=== PATIENT | female | born 1975 | race Caucasian/White ===

== ENCOUNTER → 2017-07-23 07:25 | Outpatient (CLI) | payer OTHER, SELFPAY ==
--- NOTE | 2017-07-23 07:29 | NM_ITS ---
History and Indications: Hypertension, family history, chest pain, fatigue and abnormal EKG Procedure: Patient received a 0.4 mg of Lexiscan, resting heart rate was 82 beats prominent, resting blood pressure 120/60, with Lexiscan maximum heart rate achieved was 103beats per min which is less than 85% of the maximum predicted heart rate and a blood pressure was 116/56. With Lexiscan patient denied any complained of chest pain. Electrocardiogram: Resting electrocardiogram show sinus rhythm, with Lexiscan there is less than 1.[address] segment depression noted from the baseline EKG. The EKG portion of the Lexiscan Myoview is nondiagnostic. Cardiac stress and resting SPECT images: Cardiac stress and rest SPECT images were obtained using technetium 99 Myoview 31.8 mCi at stress and 10.1 mCi at rest. Gated SPECT further analysis of segmental wall motion and calculation of the ejection fraction also done. Cardiac stress and the suspect show mild fixed defect in the anterior wall with the perfusion of the apex being normal and normal contractility in the gated SPECT is likely secondary to soft tissue attenuation, no reversible ischemia seen. Computer derived ejection fraction is 65% with no obvious regional wall motion abnormality, right ventricle is normal size and contractility. Conclusion: 1. The EKG portion of the Lexiscan Myoview is nondiagnostic. 2. No obvious scintigraphic evidence of reversible ischemia seen, a fixed defect seen anteriorly is likely secondary to soft tissue attenuation from the breast no reversible ischemia seen. Computer derived ejection fraction is 65% with no obvious regional wall motion abnormality, right ventricle is normal size and contractility.
== END ==
PROVIDERS: PCP Nurse Practitioner Family; Visit Provider Internal Medicine
DX: R94.31 Abnormal electrocardiogram [ECG] [EKG] (principal); R07.9 Chest pain, unspecified; R06.09 Other forms of dyspnea; R60.0 Localized edema; Z82.49 Family history of ischemic heart disease and other diseases of the circulatory system
CPT/HCPCS: 78452; 93017; A9502; J2785

== ENCOUNTER → 2017-07-30 08:28 | Outpatient (CLI) | payer OTHER, SELFPAY ==
--- NOTE | 2017-07-30 | CA_ITS ---
PROCEDURE: 2-D M-mode and color Doppler study INDICATIONS FOR THE TEST: Chest pain+ COPD Heart Murmur Tobacco SmokingEX Palpitations Fatigue Syncope Edema+ Hypertension Diabetes Mellitus Rheumatic Fever SOB QUIROGA+Obesity Hyperlipidemia Family History HD+ Additional History PATIENT INFORMATION HEIGHT: 69 WEIGHT: 344 GENDER: Female B/P: 172/87 2-D/M-MODE INTERPRETATION: 2-D MEASUREMENTS OBSERVED VALUES IN CMS Right Ventricular Dimension (RVDd) 2.0 Interventricular Septum (Thickness)(IVsd) 1.7 Left Ventricular Internal Dimensions(LVIDd) 2.0 Left Ventricular Posterior Wall (Thickness)(LVPWd) 1.7 Aortic Root 3.6 Aortic Cusp Separation 2.4 Left Atrial Dimensions (LAD) 3.2 2D 1. Technically difficult study because of the patient's factor and poor acoustic windows 2. Left atrium is normal size, left ventricle is normal size, there is preserved left ventricular systolic function, visually estimated ejection fraction 55% with no obvious regional wall motion abnormality. Endocardial surfaces are very poorly visualized. 3. The right atrium and right ventricle are normal size and contractility. 4. The aortic, mitral and tricuspid valvular grossly normal. 5. The pulmonic valve is poorly visualized. 6. No significant pericardial effusion noted. DOPPLER INTERROGATION: Doppler interrogation of the aortic, mitral and tricuspid valvular presence of mild mitral and tricuspid regurgitation, tricuspid regurgitant jet velocity is insufficient for calculation of the right ventricular systolic pressure, diastolic parameters are inconclusive. CONCLUSION: 1. Technically difficult study because of the patient's factor and poor acrostic Windows. 2. Normal left ventricular size, preserved left ventricular systolic function, visually estimated ejection fraction 55% with no obvious regional wall motion abnormality, endocardial surfaces are poorly visualized. 3. Mild mitral and tricuspid regurgitation 4. No significant pericardial effusion noted.
[2017-07-30 09:13] LABS: Hemoglobin A1C 6.5 % (0.0-7.0)
[2017-07-30 09:26] LABS: Anion Gap 10.3 mEq/L (5-15); Blood Urea Nitrogen 10 mg/dL (7-18); Carbon Dioxide 30 mmol/L (21.0-32.0); Chloride 106 mmol/L (98-107); Creatinine,Serum 0.68 mg/dL (0.55-1.02); Estimated Glomerular Filt Rate 94 ml/min (>60); GFR (African American) 114 ML/MIN (>60); Glucose 130 mg/dL (74-106); Potassium 4.3 mmoL/L (3.5-5.1); Sodium 142 mmol/L (136-145)
== END ==
PROVIDERS: Physician Assistant; PCP Nurse Practitioner Family; Visit Provider Internal Medicine
DX: R94.31 Abnormal electrocardiogram [ECG] [EKG] (principal); R06.09 Other forms of dyspnea; R07.89 Other chest pain; R60.0 Localized edema; Z82.49 Family history of ischemic heart disease and other diseases of the circulatory system
CPT/HCPCS: 36415; 80048; 83036; 93306

== ENCOUNTER → 2017-09-03 15:43 | Outpatient (CLI) | payer OTHER, SELFPAY | PROVIDERS: PCP Nurse Practitioner Family; Visit Provider Nurse Practitioner Family | DX: G47.30 Sleep apnea, unspecified (principal) | CPT/HCPCS: 95806 ==

== ENCOUNTER → 2019-06-01 15:50 | Outpatient (CLI) | payer OTHER, SELFPAY | PROVIDERS: Visit Provider Nurse Practitioner Family | DX: M54.9 Dorsalgia, unspecified (principal) | CPT/HCPCS: 87086 ==

== ENCOUNTER → 2019-09-12 07:20 | Outpatient (CLI) | payer OTHER, SELFPAY ==
[2019-09-12 08:40] LABS: Basophils # 0.1 K/mm3 (0-0.2); Basophils % 0.9 % (0.1-2.0); Eosinophils # 0.2 K/mm3 (0.0-0.4); Hematocrit 41.3 % (37.0-47.0); Hemoglobin 13.5 g/dL (12.2-16.2); Lymphocytes # 2.8 K/mm3 (0.7-4.5); Lymphocytes % 37.8 % (10-50); Mean Corpuscular HGB Conc 32.6 g/dL (31.8-35.4); Mean Corpuscular Volume 91.8 fl (81-99); Mean Platelet Volume 8.4 fl (7.4-10.4); Monocytes # 0.4 K/mm3 (0.1-1.0); Monocytes % 5.3 % (1.7-9.3); Neutrophils # 4.1 K/mm3 (1.8-7.8); Neutrophils % 54.1 % (37.0-80.0); Platelet Count 237 K/mm3 (142-424); Red Cell Distribution Width 13.1 % (11.5-17.5); White Blood Count 7.5 K/mm3 (4.8-10.8)
[2019-09-12 09:48] LABS: Chloride 105 mmol/L (98-107); Sodium 140 mmol/L (136-145)
[2019-09-12 09:49] LABS: Potassium 4.6 mmoL/L (3.5-5.1)
[2019-09-12 09:51] LABS: Alanine Aminotransferase 26 U/L (12-78); Alkaline Phosphatase 58 U/L (38-126); Anion Gap 13.6 mEq/L (5-15); Aspartate Amino Transferase 24 U/L (14-36); Bilirubin,Total 0.4 mg/dl (0.2-1.3); Blood Urea Nitrogen 12 mg/dl (7-17); Carbon Dioxide 26 mmol/L (22.0-30.0); Estimated Glomerular Filt Rate 108 ml/min (>60); GFR (African American) 131 ML/MIN (>60)
[2019-09-12 09:52] LABS: Albumin Level 3.9 g/dl (3.5-5.0); Albumin/Globulin Ratio 1.3 (1.1-1.8); Calcium 9.8 mg/dl (8.4-10.2); Globulin 3.1 g/dL (1.3-3.2); Glucose 125 mg/dl (74-100)
== END ==
PROVIDERS: Visit Provider Internal Medicine Rheumatology
DX: I10 Essential (primary) hypertension (principal)
CPT/HCPCS: 36415; 80053; 85025

== ENCOUNTER → 2020-07-05 07:21 | Outpatient (CLI) | payer OTHER, SELFPAY ==
[2020-07-05 07:45] LABS: Basophils # 0.1 K/mm3 (0-0.2); Basophils % 0.7 % (0.1-2.0); Eosinophils # 0.2 K/mm3 (0.0-0.4); Hematocrit 37.5 % (37.0-47.0); Hemoglobin 12.7 g/dL (12.2-16.2); Lymphocytes # 3.2 K/mm3 (0.7-4.5); Lymphocytes % 38.7 % (10-50); Mean Corpuscular HGB Conc 33.8 g/dL (31.8-35.4); Mean Corpuscular Hemoglobin 30.1 pg (27.0-31.2); Mean Corpuscular Volume 89.1 fl (81-99); Mean Platelet Volume 8.7 fl (7.4-10.4); Monocytes # 0.5 K/mm3 (0.1-1.0); Monocytes % 6.3 % (1.7-9.3); Neutrophils # 4.3 K/mm3 (1.8-7.8); Neutrophils % 52.3 % (37.0-80.0); Platelet Count 221 K/mm3 (142-424); Red Blood Count 4.21 M/mm3 (4.20-5.40); Red Cell Distribution Width 13.7 % (11.5-17.5); White Blood Count 8.2 K/mm3 (4.8-10.8)
[2020-07-05 08:44] LABS: Alanine Aminotransferase 41 U/L (12-78); Albumin Level 4.2 g/dl (3.5-5.0); Albumin/Globulin Ratio 1.4 (1.1-1.8); Alkaline Phosphatase 58 U/L (38-126); Anion Gap 8.6 mEq/L (5-15); Aspartate Amino Transferase 32 U/L (14-36); Bilirubin,Total 0.5 mg/dl (0.2-1.3); Blood Urea Nitrogen 16 mg/dl (7-17); Calcium 9.2 mg/dl (8.4-10.2); Carbon Dioxide 26 mmol/L (22.0-30.0); Chloride 108 mmol/L (98-107); Chol/HDL Ratio 4.4 (1-3.5); Cholesterol 184 mg/dl (140-200); Estimated Glomerular Filt Rate 108 ml/min (>60); GFR (African American) 130 ML/MIN (>60); Globulin 3.1 g/dL (1.3-3.2); Glucose 118 mg/dl (74-100); HDL Cholesterol 42 mg/dl (40-60); Potassium 4.6 mmoL/L (3.5-5.1); Sodium 138 mmol/L (136-145); Total Protein,Serum 7.3 g/dl (6.3-8.2); Triglycerides 107 mg/dl (30-150); VLDL Cholesterol 21 mg/dL (0-40)
[2020-07-05 08:55] LABS: Direct LDL Cholesterol 114.16 mg/dL (100-129)
== END ==
PROVIDERS: Visit Provider Internal Medicine Rheumatology
DX: Z79.899 Other long term (current) drug therapy (principal)
CPT/HCPCS: 36415; 80053; 80061; 85025

== ENCOUNTER → 2020-10-29 08:16 | Outpatient (CLI) | payer OTHER, SELFPAY | PROVIDERS: PCP Nurse Practitioner Family; Visit Provider Nurse Practitioner | DX: Z20.822 Contact with and (suspected) exposure to COVID-19 (principal); U07.1 COVID-19 | CPT/HCPCS: C9803; U0003; U0005 ==

== ENCOUNTER 2020-10-29 13:52 | Outpatient (CLI) | payer OTHER, SELFPAY ==
[2020-10-29 14:50] VITALS: BP 112/77; PULSE 96; RESP 20; TEMP 37.4; O2SAT 97
[2020-10-29 15:20] VITALS: BP 153/91; PULSE 86; RESP 20; O2SAT 95
[2020-10-29 16:30] VITALS: BP 143/81; PULSE 95; RESP 20; O2SAT 96
== END 2020-10-29 16:30 | disposition home or self-care (01) ==
LOC: INF 13:54
PROVIDERS: PCP Nurse Practitioner Family; Visit Provider Internal Medicine
DX: U07.1 COVID-19 (principal)
CPT/HCPCS: 96365

== ENCOUNTER → 2020-12-21 16:50 | Outpatient (CLI) | payer OTHER, SELFPAY ==
[2020-12-21 18:47] LABS: Hemoglobin A1C 6.5 % (4.0-6.0)
== END ==
PROVIDERS: Visit Provider Nurse Practitioner Family
DX: R73.03 Prediabetes (principal)
CPT/HCPCS: 83036

== ENCOUNTER → 2022-05-19 07:13 | Outpatient (CLI) | payer OTHER, SELFPAY ==
[2022-05-19 08:29] LABS: Basophils % 0.6 % (0.1-2.0); Eosinophils # 0.1 K/mm3 (0.0-0.4); Hematocrit 38.9 % (37.0-47.0); Hemoglobin 12.4 g/dL (12.2-16.2); Lymphocytes # 2.8 K/mm3 (0.7-4.5); Lymphocytes % 38.8 % (10-50); Mean Corpuscular HGB Conc 31.8 g/dL (31.8-35.4); Mean Corpuscular Hemoglobin 29.7 pg (27.0-31.2); Mean Corpuscular Volume 93.4 fl (81-99); Mean Platelet Volume 8.9 fl (7.4-10.4); Monocytes # 0.4 K/mm3 (0.1-1.0); Monocytes % 5.9 % (1.7-9.3); Neutrophils # 3.8 K/mm3 (1.8-7.8); Neutrophils % 53.8 % (37.0-80.0); Platelet Count 227 K/mm3 (142-424); Red Blood Count 4.16 M/mm3 (4.20-5.40); Red Cell Distribution Width 13.5 % (11.5-17.5); White Blood Count 7.1 K/mm3 (4.8-10.8)
[2022-05-19 08:56] LABS: Chloride 108 mmol/L (98-107)
[2022-05-19 08:57] LABS: Potassium 4.5 mmoL/L (3.5-5.1); Sodium 141 mmol/L (136-145)
[2022-05-19 08:59] LABS: Alanine Aminotransferase 55 U/L (12-78); Albumin/Globulin Ratio 1.4 (1.1-1.8); Alkaline Phosphatase 57 U/L (38-126); Anion Gap 10.5 mEq/L (5-15); Aspartate Amino Transferase 39 U/L (14-36); Bilirubin,Total 0.3 mg/dl (0.2-1.3); Blood Urea Nitrogen 13 mg/dl (7-17); Carbon Dioxide 27 mmol/L (22.0-30.0); Estimated Glomerular Filt Rate 132 ml/min (>60); GFR (African American) 159 ML/MIN (>60); Globulin 2.9 g/dL (1.3-3.2); Total Protein,Serum 6.9 g/dl (6.3-8.2)
[2022-05-19 09:00] LABS: Chol/HDL Ratio 4.5 (1-3.5); Cholesterol 190 mg/dl (140-200); Glucose 127 mg/dl (74-100); HDL Cholesterol 42 mg/dl (40-60); Triglycerides 142 mg/dl (30-150); VLDL Cholesterol 28 mg/dL (0-40)
[2022-05-19 09:11] LABS: Direct LDL Cholesterol 125.77 mg/dL (100-129)
[2022-05-19 09:25] LABS: 25-OH Vitamin D, Total 50.3 ng/mL (30-100)
[2022-05-19 09:29] LABS: Thyroid Stimulating Hormone 3.03 uIU/mL (0.465-4.68)
[2022-05-19 09:34] LABS: Hemoglobin A1C 9.3 % (4.0-6.0)
== END ==
PROVIDERS: PCP Physician Assistant; Visit Provider Internal Medicine Rheumatology
DX: E03.9 Hypothyroidism, unspecified (principal); R73.03 Prediabetes; E66.9 Obesity, unspecified; Z68.43 Body mass index [BMI] 50.0-59.9, adult; Z79.899 Other long term (current) drug therapy
CPT/HCPCS: 36415; 80053; 80061; 80076; 82306; 83036; 84443; 85025

== ENCOUNTER → 2022-05-29 13:14 | Outpatient (CLI) | payer OTHER, SELFPAY ==
--- NOTE | 2022-05-29 13:14 | MM_ITS ---
PROCEDURE INFORMATION: Exam: MG Bilateral Screening 3D Mammography Exam date and time: 05/29/2022 1:14 PM Age: 47 years old Clinical indication: Screening mammogram TECHNIQUE: Imaging protocol: Bilateral Screening tomosynthesis and 2D mammography including computer-aided detection (CAD) when performed. COMPARISON: No relevant prior studies available. FINDINGS: MAMMOGRAPHY: Breast composition: The breasts are almost entirely fatty. Mass: None. Architectural distortion: No new or suspicious architectural distortion. Calcifications: No new or suspicious calcifications are present Asymmetric density: No new or suspicious asymmetric density is present Skin thickening: None. Axillary adenopathy: None. IMPRESSION: No mammographic evidence of malignancy. Recommend annual screening mammography unless otherwise clinically indicated. The ASSESSMENT: BI-RADS category 1: Negative
== END ==
PROVIDERS: PCP Physician Assistant; Visit Provider Physician Assistant
DX: Z12.31 Encounter for screening mammogram for malignant neoplasm of breast (principal)
CPT/HCPCS: 77063; 77067

== ENCOUNTER 2022-12-15 09:05 | Emergency (ER) | payer OTHER, SELFPAY ==
[2022-12-15 10:00] VITALS: BP 105/75; PULSE 86; RESP 20; TEMP 36.9; O2SAT 97; BMI 54.3
--- NOTE | 2022-12-15 10:14 | EXP.UTC ---
Discharge Plan Disposition Patient Disposition: Home, Self-Care Condition: Good Prescriptions Prescriptions: New amoxicillin 875 mg tablet 875 mg PO BID Qty: 20 0RF No Action cholecalciferol (vitamin D3) 5,000 unit capsule 5,000 unit PO QDAY triamcinolone acetonide 0.1 % ointment 1 applic TOPICAL Rinvoq 15 mg tablet extended release 24 hr 15 mg PO DAILY losartan-hydrochlorothiazide 50-12.5 mg tablet 1 tab PO DAILY Qty: 90 3RF metformin 500 mg tablet 500 mg PO DAILY Qty: 90 3RF glipizide 10 mg tablet extended release 24hr 10 mg PO DAILY Qty: 90 3RF atorvastatin [Lipitor] 10 mg tablet 10 mg PO DAILY Qty: 90 3RF (DME) blood-glucose meter [Accu-Chek Guide Glucose Meter] Misc See Rx Instructions .Route Qty: 1 0RF Rx Instructions: FS BID (DME) lancets [Accu-Chek Softclix Lancets] Misc See Rx Instructions .Route Qty: 200 3RF Rx Instructions: FS BID alcohol swabs [Alcohol Prep Pads] Pads, Medicated 1 pad topical BID Qty: 200 3RF (DME) Accu-Chek Guide test strips Strip See Rx Instructions .ROUTE .COMPLEX Qty: 100 2RF Dose Instruction: USE TO TEST BLOOD SUGAR 2 TIMES A DAY Rx Instructions: USE TO TEST BLOOD SUGAR 2 TIMES A DAY paroxetine HCl 10 mg tablet See Rx Instructions .ROUTE .COMPLEX Qty: 90 3RF Dose Instruction: TAKE ONE TABLET BY MOUTH ONCE A DAY Rx Instructions: TAKE ONE TABLET BY MOUTH ONCE A DAY levothyroxine 100 mcg tablet See Rx Instructions .ROUTE .COMPLEX Qty: 30 1RF Dose Instruction: TAKE ONE TABLET BY MOUTH ONCE A DAY Rx Instructions: TAKE ONE TABLET BY MOUTH ONCE A DAY Referrals Follow up/Referrals: Ivett Santana PA [Primary Care Provider] - See instructions Activity Restrictions/Add. Instructions Additional Instructions/Restrictions: *Monitor Temp, Over the counter Motrin or Tylenol as directed/as needed Tylenol every 4 hours and Motrin every 6 hours (as long as your family doctor has told you that you can take it) for fever or pain. and straight to ER if unable to lower temp less than 101.0 after medication given *Warm salt water gargles may help to soothe the throat *Throat Lozenges? *Warm fluids like tea with honey may help to soothe the throat? *Sleep elevated *Humidifier/Vaporizer *If you did not take Penicillin shot or was unable to, start taking antibiotic immediately and make sure that you take it for the FULL length of time although you should start to feel better in 24-48 hours *change toothbrush and toothpaste 24-48 hours after starting to take antibiotics so you do not reinfect yourself Monitor Temp. Tylenol and/or Ibuprofen as needed. ER if fever is no less than 101 despite alternating Tylenol and Ibuprofen * Encourage fluids, water, Gatorade, powerade, pedialyte if infant/toddler/or child *Cold fluids, popsicles and ice cream may feel good on his throat Follow up IMMEDIATELY for new or worsening symptoms or no Noticeable improvement over the next 48-72 hours. 911 for difficulty breathing or swallowing Clinical Impressions Clinical Impression: Strep throat Instructions Patient Instructions: DI for Strep Throat, Amoxicillin Discharge ED Provider: Debra Villarreal [facility] [place] General Stated complaint: sore throat, TAM Mode of Arrival: Ambulatory Source of Information: Patient Limitations: No Limitations Time Seen by Provider: 12/15/22 10:14 Description of Symptoms (Recalled from Triage Doc. by RN): PATIENT C/O COUGH, CONGESTION, ENLARGED LYMPH NODES IN NECK AND FEVER SINCE 12/12 HEENT Symptoms (Recalled from RN notes): No Resp Symptoms (Recalled from RN notes): Yes Skin Symptoms (Recalled from RN notes): No MS Symptoms (Recalled from RN notes): No Functional Status (Recalled from RN notes): WNL History of Present Illness Provider Complaint: Patient states that she has been having
[2022-12-15 10:27] LABS: UTC Influenza A Antigen Negative (Negative); UTC Influenza B Antigen Negative (Negative); UTC Strep Screen (Rapid) Positive (Negative)
[2022-12-15 10:35] VITALS: BP 105/75; PULSE 86; RESP 20; TEMP 36.9; O2SAT 97
== END 2022-12-15 10:38 | disposition home or self-care (01) ==
PROVIDERS: Emergency Provider Nurse Practitioner; PCP Physician Assistant
DX: J02.0 Streptococcal pharyngitis (principal); R50.9 Fever, unspecified; E11.9 Type 2 diabetes mellitus without complications; L40.52 Psoriatic arthritis mutilans; Z79.84 Long term (current) use of oral hypoglycemic drugs; Z87.891 Personal history of nicotine dependence
CPT/HCPCS: 87804; 87880; 99204; 99212; G0463

== ENCOUNTER 2023-04-24 10:22 | Outpatient (CLI) | payer OTHER, SELFPAY ==
[2023-04-24 10:35] LABS: Basophils # 0.1 K/mm3 (0-0.2); Basophils % 0.7 % (0.1-2.0); Eosinophils # 0.1 K/mm3 (0.0-0.4); Eosinophils % 1.1 % (0.1-12.0); Hematocrit 38.2 % (37.0-47.0); Hemoglobin 12.4 g/dL (12.2-16.2); Lymphocytes % 29.3 % (10-50); Mean Corpuscular HGB Conc 32.5 g/dL (31.8-35.4); Mean Corpuscular Hemoglobin 30.8 pg (27.0-31.2); Mean Corpuscular Volume 94.9 fl (81-99); Mean Platelet Volume 8.9 fl (7.4-10.4); Monocytes # 0.5 K/mm3 (0.1-1.0); Monocytes % 5.2 % (1.7-9.3); Neutrophils # 6.6 K/mm3 (1.8-7.8); Neutrophils % 63.6 % (37.0-80.0); Platelet Count 265 K/mm3 (142-424); Red Blood Count 4.03 M/mm3 (4.20-5.40); Red Cell Distribution Width 14.4 % (11.5-17.5); White Blood Count 10.4 K/mm3 (4.8-10.8)
[2023-04-24 11:09] LABS: Alanine Aminotransferase 59 U/L (12-78); Albumin Level 4.3 g/dl (3.5-5.0); Albumin/Globulin Ratio 1.4 (1.1-1.8); Alkaline Phosphatase 61 U/L (38-126); Anion Gap 14.2 mEq/L (5-15); Aspartate Amino Transferase 48 U/L (14-36); Bilirubin,Total 0.3 mg/dl (0.2-1.3); Blood Urea Nitrogen 16 mg/dl (7-17); Calcium 9.4 mg/dl (8.4-10.2); Carbon Dioxide 26 mmol/L (22.0-30.0); Chloride 107 mmol/L (98-107); Estimated Glomerular Filt Rate 76 ml/min (>60); GFR (African American) 92 ML/MIN (>60); Globulin 3.1 g/dL (1.3-3.2); Glucose 76 mg/dl (74-100); Potassium 4.2 mmoL/L (3.5-5.1); Sodium 143 mmol/L (136-145); Total Protein,Serum 7.4 g/dl (6.3-8.2)
== END 2023-04-24 23:59 ==
LOC: LAB 10:24
PROVIDERS: PCP Physician Assistant; Visit Provider Internal Medicine Rheumatology
DX: D64.9 Anemia, unspecified (principal); R74.01 Elevation of levels of liver transaminase levels; L40.50 Arthropathic psoriasis, unspecified
CPT/HCPCS: 36415; 80053; 85025

== ENCOUNTER 2023-05-01 12:02 | Emergency (ER) | payer OTHER, SELFPAY ==
[2023-05-01 12:04] VITALS: BP 126/89; PULSE 93; RESP 18; TEMP 36.7; O2SAT 97; BMI 51.7
--- NOTE | 2023-05-01 12:29 | HMH.EDGENADL ---
Discharge Plan Disposition Patient Disposition: Home, Self-Care Prescriptions Prescriptions: No Action cholecalciferol (vitamin D3) 5,000 unit capsule 5,000 unit PO QDAY triamcinolone acetonide 0.1 % ointment 1 applic TOPICAL Rinvoq 15 mg tablet extended release 24 hr 15 mg PO DAILY metformin 500 mg tablet 500 mg PO DAILY Qty: 90 3RF glipizide 10 mg tablet extended release 24hr 10 mg PO DAILY Qty: 90 3RF atorvastatin [Lipitor] 10 mg tablet 10 mg PO DAILY Qty: 90 3RF (DME) blood-glucose meter [Accu-Chek Guide Glucose Meter] Misc See Rx Instructions .Route Qty: 1 0RF Rx Instructions: FS BID (DME) lancets [Accu-Chek Softclix Lancets] Misc See Rx Instructions .Route Qty: 200 3RF Rx Instructions: FS BID alcohol swabs [Alcohol Prep Pads] Pads, Medicated 1 pad topical BID Qty: 200 3RF (DME) Accu-Chek Guide test strips Strip See Rx Instructions .ROUTE .COMPLEX Qty: 100 2RF Dose Instruction: USE TO TEST BLOOD SUGAR 2 TIMES A DAY Rx Instructions: USE TO TEST BLOOD SUGAR 2 TIMES A DAY paroxetine HCl 10 mg tablet See Rx Instructions .ROUTE .COMPLEX Qty: 90 3RF Dose Instruction: TAKE ONE TABLET BY MOUTH ONCE A DAY Rx Instructions: TAKE ONE TABLET BY MOUTH ONCE A DAY levothyroxine 100 mcg tablet See Rx Instructions .ROUTE .COMPLEX Qty: 30 1RF Dose Instruction: TAKE ONE TABLET BY MOUTH ONCE A DAY Rx Instructions: TAKE ONE TABLET BY MOUTH ONCE A DAY losartan-hydrochlorothiazide 50-12.5 mg tablet See Rx Instructions .ROUTE .COMPLEX Qty: 90 0RF Dose Instruction: TAKE ONE TABLET BY MOUTH ONCE A DAY Rx Instructions: TAKE ONE TABLET BY MOUTH ONCE A DAY amoxicillin 875 mg tablet 875 mg PO BID Qty: 20 0RF Referrals Follow up/Referrals: Ivett Santana PA [Primary Care Provider] - See instructions Activity Restrictions/Add. Instructions Additional Instructions/Restrictions: Please follow-up with employee health and postexposure protocol as indicated. Clinical Impressions Clinical Impression: Needle stick injury Discharge ED Provider: Nusrat Luu General Adult HPI General Chief complaint: Recheck/Abnormal Lab/Rx Stated complaint: Post exposure of needle stick Time Seen by Provider: 05/01/23 12:19 Mode of Arrival: Ambulatory Source of Information: Patient Limitations: No Limitations Description of Symptoms (Recalled from ER Triage Doc. by RN): Patient reports being stuck by a needle while at work. Right index finger. History of Present Illness HPI narrative: Patient is a 48-year-old female presents today with a needlestick. 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 States that she accidentally stuck herself with a lidocaine needle that had been used on the patient. The patient is not a known positive or any blood-borne pathogen's. The patient extensively cleaned this immediately. She is already had blood work drawn prior to my evaluation based on our hospital's protocol. Related Data Home Medications Medication Instructions Recorded Confirmed cholecalciferol (vitamin D3) 125 5,000 unit PO QDAY 03/05/17 05/28/22 mcg (5,000 unit) capsule triamcinolone acetonide 0.1 % 1 applic topical 05/22/21 05/28/22 topical ointment upadacitinib 15 mg tablet,extended 15 mg PO DAILY 05/28/22 05/28/22 release 24 hr (Rinvoq) Previous Rx's Medication Instructions Recorded alcohol swabs (Alcohol Prep Pads) 1 pad topical BID #200 ea 05/21/22 atorvastatin 10 mg tablet (Lipitor) 10 mg PO DAILY #90 tabs 05/21/22 blood-glucose meter (Accu-Chek #1 ea 05/21/22 Guide Glucose Meter) glipizide 10 mg tablet, extended 10 mg PO DAILY #90 tabs 05/21/22 release 24 hr lancets (Accu-Chek Softclix #200 ea 05/21/22 Lancets) metformin 500 mg tablet 500 mg PO DAILY #90 tabs 05/21/22 blood sugar diagnostic (Accu-Chek #100 strips 07/09/22 Guide test strips) paroxetine HCl 10 mg tablet See Rx Instructions .Route 10/17/22 .COMPLEX #90 tabs levothyroxine 100 mcg tablet See Rx Instructions .Route 10/20/22 .COMPLEX #30 tabs amoxicillin 875 mg tablet 875 mg PO BID #20 tabs 12/15/22 losartan 50 mg-hydrochlorothiazide See Rx Instructions .Route 04/14/23 12.5 mg tablet .COMPLEX #90 tabs Allergies Allergy/AdvReac Type Severity Reaction Status Date / Time aspirin AdvReac Mild Verified 05/28/22 08:41 [facility] Disclaimer: The information contained in this section may have been updated after the patient was seen, as this information can be updated by other users. Medical History (Updated 05/01/23 @ 12:29 by Nusrat Luu MD) Type 2 diabetes mellitus Psoriatic arthritis of multiple joints Surgical History (Updated 05/08/22 @ 08:48 by Britt Vargas MA) Previous section Hx of cholecystectomy Social History Smoking Status: Unknown if ever smoked alcohol intake: never counseling provided: none substance use type: denies use current occupational status: employed Travel in the last 8 weeks: None household members: children housing: house ROS Obtained: Yes All systems reviewed & no additional complaints except as documented Physical Exam General General appearance: alert and in no apparent distress Respiratory Respiratory exam: Present normal lung sounds bilaterally Cardiovascular Cardiovascular exam: Present regular rate and normal rhythm Neurological Exam Neurological exam: Present alert and oriented X3 Medical Decision Making Hawk Inquiry Pt receiving controlled substance: No Vital Signs: 05/01/23 12:04 Temperature 98.0 F Temperature Source Oral Pulse Rate [Radial] 93 H Respiratory Rate 18 Blood Pressure [Right Arm] 126/89 Blood Pressure Mean [Right Arm] 101 Blood Pressure Source [Right Arm] Automatic Cuff Blood Pressure Position [Right Arm] Sitting 02 Sat by Pulse Oximetry 97 Oxygen Delivery Method Room Air Orders (Tests/Meds): ORDERS Category Date Time Status Complete Blood Count Auto Diff Stat Lab 05/01/23 12:17 Ordered HBsAg Screen Stat Lab 05/01/23 12:17 Ordered HIV Panel [id number] Stat Lab 05/01/23 12:17 Ordered Hep B Surface Ab, Qual Stat Lab 05/01/23 12:17 Ordered Hepatitis C Antibody Stat Lab 05/01/23 12:17 Ordered Liver Panel Stat Lab 05/01/23 12:17 Ordered PT/PTT Stat Lab 05/01/23 12:17 Ordered UDS [Drug Screen,Urine] Stat Lab 05/01/23 12:17 Ordered Medical Decision Narrative: 48-year-old with above history. We had an extensive discussion about the risks associated with possible blood-borne pathogen exposures in patients who are unknown positives. She is exceedingly low risk for any type of transmission or seroconversion. She understands this. I do not recommend postexposure prophylaxis in this particular case which she understands and agrees with. Labs were drawn per protocol she will follow-up per protocol as well. She had no further questions and was discharged in stable condition. Critical Care Critical Care Time Critical Care Time: No
[2023-05-01 12:48] LABS: Alanine Aminotransferase 56 U/L (12-78); Alkaline Phosphatase 64 U/L (38-126); Aspartate Amino Transferase 42 U/L (14-36); Bilirubin,Direct 0.3 mg/dl (0.0-0.4); Bilirubin,Total 0.3 mg/dl (0.2-1.3)
[2023-05-01 12:49] LABS: Albumin Level 4.3 g/dl (3.5-5.0); Total Protein,Serum 7.7 g/dl (6.3-8.2)
[2023-05-01 12:52] LABS: Activated Partial Thrombo Time 27.1 seconds (22.8-30.6); INR 0.98 (0.9-1.1); Prothrombin Time 10.6 seconds (10.1-12.5)
[2023-05-01 13:03] VITALS: BP 126/89; PULSE 93; RESP 18; TEMP 36.7; O2SAT 97
[2023-05-01 13:20] VITALS: BP 132/76; PULSE 78; RESP 18; TEMP 36.6; O2SAT 99
[2023-05-01 14:51] LABS: Basophils # 0.1 K/mm3 (0-0.2); Basophils % 0.6 % (0.1-2.0); Eosinophils # 0.1 K/mm3 (0.0-0.4); Eosinophils % 0.8 % (0.1-12.0); Hematocrit 40.4 % (37.0-47.0); Hemoglobin 12.8 g/dL (12.2-16.2); Lymphocytes # 3.1 K/mm3 (0.7-4.5); Lymphocytes % 26.4 % (10-50); Mean Corpuscular HGB Conc 31.8 g/dL (31.8-35.4); Mean Corpuscular Hemoglobin 30.8 pg (27.0-31.2); Monocytes # 0.7 K/mm3 (0.1-1.0); Monocytes % 5.6 % (1.7-9.3); Neutrophils # 7.7 K/mm3 (1.8-7.8); Neutrophils % 66.6 % (37.0-80.0); Platelet Count 264 K/mm3 (142-424); Red Blood Count 4.17 M/mm3 (4.20-5.40); Red Cell Distribution Width 14.4 % (11.5-17.5); White Blood Count 11.6 K/mm3 (4.8-10.8)
[2023-05-02 18:10] LABS: HIV Screen 4th Generation wRfx Non Reactive (Non Reactive)
[2023-05-03 09:45] LABS: Hep B Surface Ab, Qual Non Reactive; Hepatitis B Surface Antigen Negative; Hepatitis C Antibody Non Reactive
== END 2023-05-01 13:20 | disposition home or self-care (01) ==
PROVIDERS: Emergency Provider Student in an Organized Health Care Education/Training Program; PCP Physician Assistant
DX: S61.230A Puncture wound without foreign body of right index finger without damage to nail, initial encounter (principal); W46.0XXA Contact with hypodermic needle, initial encounter; E11.9 Type 2 diabetes mellitus without complications; L40.52 Psoriatic arthritis mutilans
CPT/HCPCS: 80076; 85025; 85610; 85730; 86703; 86706; 87340; 87380; 99285; G0432

== ENCOUNTER 2023-10-22 15:00 | Outpatient (CLI) | payer OTHER, SELFPAY ==
[2023-10-22 19:04] LABS: Basophils # 0.1 K/mm3 (0-0.2); Basophils % 0.9 % (0.1-2.0); Eosinophils # 0.1 K/mm3 (0.0-0.4); Eosinophils % 0.8 % (0.1-12.0); Hematocrit 41.4 % (37.0-47.0); Hemoglobin 12.7 g/dL (12.2-16.2); Lymphocytes # 2.7 K/mm3 (0.7-4.5); Lymphocytes % 28.4 % (10-50); Mean Corpuscular HGB Conc 30.7 g/dL (31.8-35.4); Mean Corpuscular Hemoglobin 29.8 pg (27.0-31.2); Mean Platelet Volume 10.4 fl (7.4-10.4); Monocytes # 0.6 K/mm3 (0.1-1.0); Monocytes % 5.9 % (1.7-9.3); Neutrophils # 6.1 K/mm3 (1.8-7.8); Platelet Count 294 K/mm3 (142-424); Red Blood Count 4.27 M/mm3 (4.20-5.40); Red Cell Distribution Width 13.9 % (11.5-17.5); White Blood Count 9.5 K/mm3 (4.8-10.8)
[2023-10-22 19:24] LABS: Alanine Aminotransferase 43 U/L (12-78); Albumin Level 4.1 g/dl (3.5-5.0); Albumin/Globulin Ratio 1.2 (1.1-1.8); Alkaline Phosphatase 55 U/L (38-126); Aspartate Amino Transferase 35 U/L (14-36); Bilirubin,Total 0.2 mg/dl (0.2-1.3); Blood Urea Nitrogen 22 mg/dl (7-17); Calcium 9.7 mg/dl (8.4-10.2); Carbon Dioxide 25 mmol/L (22.0-30.0); Chloride 109 mmol/L (98-107); Chol/HDL Ratio 3.6 (1-3.5); Cholesterol 178 mg/dl (140-200); Estimated Glomerular Filt Rate 106 ml/min (>60); GFR (African American) 129 ML/MIN (>60); Globulin 3.3 g/dL (1.3-3.2); Glucose 95 mg/dl (74-100); HDL Cholesterol 50 mg/dl (40-60); Sodium 142 mmol/L (136-145); Total Protein,Serum 7.4 g/dl (6.3-8.2); Triglycerides 276 mg/dl (30-150); VLDL Cholesterol 55 mg/dL (0-40)
[2023-10-22 19:31] LABS: Hemoglobin A1C 6.3 % (4.0-6.0)
[2023-10-22 19:35] LABS: Direct LDL Cholesterol 89.43 mg/dL (100-129)
[2023-10-22 19:46] LABS: 25-OH Vitamin D, Total 58.7 ng/mL (30-100)
[2023-10-22 19:50] LABS: Free Thyroxine Index 3.1 ug/dL (5.93-13.13); T4 (Thyroxine) 10.4 ug/dl (5.53-11.0); Triiodothryronine (T3) Uptake 30 % (23.5-40.5)
[2023-10-22 19:54] LABS: Thyroid Stimulating Hormone 2.87 uIU/mL (0.465-4.68)
[2023-10-22 20:03] LABS: Thyroid Stimulating Hormone 2.81 uIU/mL (0.465-4.68)
== END 2023-10-22 23:59 | disposition home or self-care (01) ==
LOC: LAB.DROPOF 10-23 15:02
PROVIDERS: PCP Family Medicine; Visit Provider Family Medicine
DX: R94.31 Abnormal electrocardiogram [ECG] [EKG] (principal); E11.9 Type 2 diabetes mellitus without complications; E03.9 Hypothyroidism, unspecified; E66.01 Morbid (severe) obesity due to excess calories; Z68.43 Body mass index [BMI] 50.0-59.9, adult; Z79.84 Long term (current) use of oral hypoglycemic drugs; Z79.85 Long-term (current) use of injectable non-insulin antidiabetic drugs
CPT/HCPCS: 80050; 80053; 80061; 82306; 83036; 84436; 84443; 84479; 85025

== ENCOUNTER 2024-11-11 07:10 | Outpatient (CLI) | payer OTHER, SELFPAY ==
--- OUTSIDE RECORDS SUMMARY | 2024-11-11 07:13 | XMS_ITS | Clinical Summary ---
Author Organization Healthcare Address [address] [place] [address] Care Team Providers Care Folder Gluer Operator Name Role Phone Ivett Santana Primary Care Provider [phone] Allergies Active Allergy Reactions Criticality Noted Date Comments Aspirin Hives Medium 12/18/2016 Medications losartan-hydroC HLOROthiazide (Hyzaar) 50-12.5 MG tablet Take 1 tablet by mouth 1 (one) time each day. 1 Active levothyroxine (Synthroid, Levoxyl) 100 MCG tablet Take 1 tablet (100 mcg) by mouth 1 (one) time each day. 7 Active cholecalciferol (Vitamin D-3) 125 MCG (5000 UT) capsule Take 1 capsule (5,000 Units) by mouth 1 (one) time each day. Active PARoxetine (Paxil) 10 MG tablet 1 Active atorvastatin (Lipitor) 10 MG tablet Take 1 tablet (10 mg) by mouth 1 (one) time each day. Active glipiZIDE XL 10 MG 24 hr tablet Take 1 tablet (10 mg) by mouth 1 (one) time each day. 4 Active metFORMIN (Glucophage) 500 MG tablet Take 1 tablet (500 mg) by mouth 1 (one) time each day with breakfast. Active Upadacitinib ER (Rinvoq) 15 MG tablet sustained-relea se 24 hourIndications :Psoriatic arthritis (CMS/HCC) TAKE 1 TABLET BY MOUTH 1 TIME EACH DAY. 30 tablet 11 4 Active Ozempic, 0.25 or 0.5 MG/DOSE, 2 MG/3ML solution pen-injector 4 Active triamcinolone (Kenalog) 0.1 % ointment Apply topically 2 (two) times a day. 80 g 6 4 Active Active Problems Problem Noted Date Diagnosed Date Morbid obesity with body mass index (BMI) of 40. 0 or higher 04/10/2022 Psoriatic arthritis 02/20/2017 Psoriasis 12/18/2016 Immunizations Immunization Administration Dates Next Due Hep A, Adult 02/09/2018 Family History Medical History Relation Name Comments Arthritis Father Bambi Young Cardiac disorder Father Bambi Young Diabetes Father Bambi Young Hypertension Father Bambi Young Diabetes Mother Dinora Young Hypertension, benign Mother Dinora Young Kidney disease Mother Dinora Young Hypertension Other 1 Osteoarthritis Other 2 Relation Name Status Comments Father Bambi Young Mother Dinora Young Alive Other 1 Other 2 Social History Tobacco Use Types Packs/Day Years Used Date Smoking Tobacco: Former Cigarettes 1.5 7 Q uit: 11/17/2014 Passive Smoke Exposure: Past Smokeless Tobacco: Never Tobacco Cessation:Counseling Given: Not Answered Alcohol Use Standard Drinks/Week Comments Never 0 (1 standard drink = 0.6 oz pur e alcohol) PHQ-2 Answer Date Recorded Patient Health Questionnaire-2 Score 0 01/26/2024 PHQ-2A Answer Date Recorded Patient Health Questionnaire-2 Score 0 04/08/2022 Comments Unknown Sex and Gender Information Value Date Recorded Sex Assigned at Female 04/07/2022 3:01 PM EST Legal Sex Female 7:53 PM EDT Gender Identity Female 04/07/2022 3:01 PM EST Sexual Orientation Straight 04/07/2022 3: 01 PM EST Last Filed Vital Signs Vital Sign Reading Time Taken Comments Blood Pressure 149/102 01/26/2024 9:02 AM EST Pulse 81 01/26/2024 8:18 AM EST Temperature 36.9 C (98.4 F) 01/26/2024 8:18 AM EST Respiratory Rate 16 01/26/2024 8:18 AM EST Oxygen Saturation 96% 01/26/2024 8:18 AM EST Inhaled Oxygen Concentration - - Weight 153 kg (338 lb 3 oz) 01/26/2024 8:[address] Height 172.7 cm (5' 8 ) 01/26/2024 8:18 AM EST Body Mass Index 51.42 01/26/2024 8:18 AM EST Plan of Treatment Upcoming Encounters Date Type Department Care Team (Late st Contact Info) Description 01/26/2025 8:15 AM EST [facility] [address] [place] [address] AnticVickie, DO [address] [place] [address] Health Maintenance Due Date Last Done Comments [facility]-HIV Screening 1974 [facility]-/Child/Adol SDOH Screenings 1974 [facility]- SDOH Screenings 1992 [facility]-Adult SDOH Screenings 1992 [facility]-DTaP,Tdap,and Td Vaccine s (1 - Tdap) 1993 [facility]-Hepatitis B Vaccines (1 of 3 - 19+ 3-dose series) 1993 [facility]-Pneumococcal Vaccine: 50 + Years (1 of 2 - PCV) 1993 [facility]-Zoster Vaccines (1 of 2) 1993 [facility]-Pap Smear 1995 [facility]-Cervical Cancer Screening 2004 [facility]-HPV/Cotest 2004 CT Colonography 2019 Colonoscopy 2019 FIT-DNA 2019 FIT 2019 FOBT 2019 Sigmoidoscopy 2019 [facility]-Colorectal Cancer Screening 2019 [id number] Vaccine (3 - Moderna risk series) 03/26/2021 02/26/2021, 01/29/2021 [facility]-Breast Cancer Screening 2024 [facility]-Influenza Vaccine (#1) 2024 [facility]-Depression Screening 01/25/2025 01/26/2024 [facility]-Hepatitis A Vaccines Aged Out 02/09/2018 No longer eligible based on patient's age to complete this topic [facility]-Hepatitis C Screening Completed 04/01/2018 [facility]-Obesity Intervention Completed 024, 07/28/2023, 04/08/2022 HPV Vaccines Aged Out No longer eligi ble based on patient's age to complete this topic [facility]-HIB Vaccines Aged Out No longer e ligible based on patient's age to complete this topic [facility]-IPV Vaccines Aged Out No longer e ligible based on patient's age to complete this topic [facility]-Rotavirus Vaccines Aged Out No lo nger eligible based on patient's age to complete this topic Procedures Procedure Name Priority Date/Time Associated Diagnosis Comments ACUTE HEPATITIS PANEL Routine 04/01/2018 3:46 PM EST from Last 3 Months or Most Recently Relevant to Health Maintenance Results * Acute Hepatitis Panel (04/01/2018 3:46 PM EST) Hepatitis B Surf Antigen NEGATIVE Reference Value: Negative SUNQUEST Hepatitis C Antibody NEGATIVE Reference Range: Negative SUNQUEST Hepatitis A Antibody IgM NEGATIVE Reference Value: Negative SUNQUEST External Hepatitis B Core IgM (HBCM) NEGATIVE Reference Value: Negative SUNQUEST 04/01/2018 3:46 PM EST 04/01/2018 7:00 PM EST Bridgett Gutierrez [facility] LAB BLOOD ORDERABLES Fi nal Result SUNQUEST from Last 3 Months or Most Recently Relevant to Health Maintenance Insurance [facility] Care Teams Folder Gluer Operator Relationship Specialty Start Date End Date Ivett Santana PA [address] [place] [address] PCP - General 07/28/23
--- OUTSIDE RECORDS SUMMARY | 2024-11-11 07:13 | XMS_ITS | Encounter Summary ---
Author Organization Healthcare Address [address] [place] [address] Care Team Providers Care Terrazzo Worker Helper Name Role Phone Rohan Saravia STEVEN Primary Care Provider [phone] Ivett Santana Primary Care Provider [phone] Reason for Visit * Reason Comments Med Refill Encounter Details Date Type Department Care Team (Late st Contact Info) Description 11/22/2020 [facility]ill [facility] [address] [place] [address] Yeiska Christian MD [address] [place] [address] Social History Tobacco Use Types Packs/Day Years Used Date Smoking Tobacco: Former Smokeless Tobacco: Never Alcohol Use Standard Drinks/Week Comments No 0 (1 standard drink = 0.6 oz pur e alcohol) PHQ-2 Answer Date Recorded Patient Health Questionnaire-2 Score 0 10/23/2020 Comments Unknown Sex and Gender Information Value Date Recorded Sex Assigned at Female 04/07/2022 3:01 PM EST Legal Sex Female 7:53 PM EDT Gender Identity Female 04/07/2022 3:01 PM EST Sexual Orientation Straight 04/07/2022 3: 01 PM EST COVID-19 Exposure Response Date Recorded In the last month, have you been in contact with someone who was confirmed or suspected to have Coronavirus / COVID-19? No / Unsure 10/23/2020 2:52 PM EDT documented as of this encounter Plan of Treatment Upcoming Encounters Date Type Department Care Team (Late st Contact Info) Description 01/26/2025 8:15 AM EST [facility] [address] [place] [address] Vickie Chisholm, DO [address] [place] [address] documented as of this encounter Visit Diagnoses Not on filedocumented in this encounter Additional Health Concerns Assessment Noted Time A fall risk assessment has been complete d for the patient 10/23/2020 3:14 PM EDT documented as of this encounter Care Teams Terrazzo Worker Helper Relationship Specialty Start Date End Date Rohan Saravia APRN [address] [place] [address] PCP - General 06/22/20 07/27/23 Ivett Santana PA [address] [place] [address] PCP - General 07/28/23 documented as of this encounter
[2024-11-11 07:39] LABS: Hematocrit 38.7 % (37.0-47.0); Hemoglobin 12.2 g/dL (12.2-16.2); Immature Granulocytes % 0.9 %; Mean Corpuscular HGB Conc 31.5 g/dL (31.8-35.4); Mean Corpuscular Hemoglobin 29.6 pg (27.0-31.2); Mean Corpuscular Volume 93.9 fl (81-99); Nucleated Red Blood Cells % 0 %; Platelet Count 228 K/mm3 (142-424); Red Blood Count 4.12 M/mm3 (4.20-5.40); Red Cell Distribution Width-SD 49.1 fL; White Blood Count 8.9 K/mm3 (4.8-10.8)
[2024-11-11 08:02] LABS: Hemoglobin A1C 6.3 % (4.0-6.0)
[2024-11-11 08:11] LABS: Albumin Level 4.1 g/dl (3.5-5.0); Chloride 103 mmol/L (98-107); Sodium 139 mmol/L (136-145)
[2024-11-11 08:12] LABS: Potassium 4.3 mmoL/L (3.5-5.1)
[2024-11-11 08:14] LABS: Alanine Aminotransferase 74 U/L (12-78); Albumin/Globulin Ratio 1.2 (1.1-1.8); Alkaline Phosphatase 72 U/L (38-126); Anion Gap 14.3 mEq/L (5-15); Aspartate Amino Transferase 57 U/L (14-36); Bilirubin,Total 0.2 mg/dl (0.2-1.3); Blood Urea Nitrogen 12 mg/dl (7-17); Carbon Dioxide 26 mmol/L (22.0-30.0); Cholesterol 161 mg/dl (140-200); Creatinine,Serum 0.50 mg/dl (0.52-1.04); Estimated Glomerular Filt Rate 131 ml/min (>60); GFR (African American) 158 ML/MIN (>60); Globulin 3.4 g/dL (1.3-3.2); Total Protein,Serum 7.5 g/dl (6.3-8.2); Triglycerides 150 mg/dl (30-150)
[2024-11-11 08:15] LABS: Calcium 10.0 mg/dl (8.4-10.2); Glucose 116 mg/dl (74-100); HDL Cholesterol 48 mg/dl (40-60)
[2024-11-11 08:45] LABS: Thyroid Stimulating Hormone 3.81 uIU/mL (0.465-4.68)
== END 2024-11-11 23:59 | disposition home or self-care (01) ==
LOC: LAB 07:11
PROVIDERS: PCP Family Medicine; Visit Provider Family Medicine
DX: L40.50 Arthropathic psoriasis, unspecified (principal); G47.33 Obstructive sleep apnea (adult) (pediatric); E11.9 Type 2 diabetes mellitus without complications; E66.9 Obesity, unspecified; E03.9 Hypothyroidism, unspecified
CPT/HCPCS: 36415; 80053; 80061; 83036; 84443; 85025

== ENCOUNTER 2025-02-03 09:54 | Outpatient (CLI) | payer OTHER, SELFPAY ==
--- OUTSIDE RECORDS SUMMARY | 2025-01-26 08:15 | XMS_ITS | Encounter Summary ---
Author Organization Healthcare Address [address] 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 Social History Tobacco Use Types Packs/Day Years Used Date Smoking Tobacco: Former Cigarettes 1.5 7 Q uit: 11/17/2014 Passive Smoke Exposure: Past Smokeless Tobacco: Never Alcohol Use Standard Drinks/Week Comments Never 0 [...] Orientation Straight 04/07/2022 3: 01 PM EST documented as of this encounter Last Filed Vital Signs Vital Sign Reading Time Taken Comments Blood Pressure 116/84 01/26/2025 7:47 AM EST Pulse 76 01/26/2025 7:47 AM EST Temperature - - Respiratory Rate - - Oxygen Saturation 96% 01/26/2025 7:47 AM EST Inhaled Oxygen Concentration - - Weight 158 kg (347 lb 14.2 oz) 01/26/2025 7:47 A M EST Height 172.7 cm (5' 8 ) 01/26/2025 7:47 AM EST Body Mass Index 52.9 01/26/2025 7:47 AM EST documented in this encounter Functional Status * BP Answer Date of Assessment Author 116/84 01/26/2025 7:47 AM Nusrat Pedraza * Pulse Answer Date of Assessment Author 76 01/26/2025 7:47 AM Nusrat Pedraza * SpO2 Answer Date of Assessment Author 96 01/26/2025 7:47 AM Nusrat Pedraza * Height Answer Date of Assessment Author 68 01/26/2025 7:47 AM Nusrat Pedrzaa * Weight Answer Date of Assessment Author 5566.17 01/26/2025 7:47 AM Nusrat Pedraza * BMI (Calculated) Answer Date of Assessment Author 53 01/26/2025 7:47 AM Nusrat Pedraza * Percent Excess Weight Loss Answer Date of Assessment Author 0 01/26/2025 7:47 AM Nusrat Pedraza * Total Weight Change Percent Answer Date of Assessment Author 2222 01/26/2025 7:47 AM Nusrat Pedraza A * Weight Change Since Preop Answer Date of Assessment Author 157.76 01/26/2025 7:47 AM Nusrat Pedraza A * Initial Excess Weight Answer Date of Assessment Author -63.5 01/26/2025 7:47 AM Nusrat Pedraza * IBW in lbs (Bariatric) Answer Date of Assessment Author 140 01/26/2025 7:47 AM Nusrat Pedraza A * Weight Change Since Last Visit Answer Date of Assessment Author 157.76 01/26/2025 7:47 AM Nusrat Pedraza A * IBW in kg (Bariatric) Answer Date of Assessment Author 63.5 01/26/2025 7:47 AM Nusrat Pedraza * Percent of IBW Answer Date of Assessment Author 8,765.62 01/26/2025 7:47 AM Nusrat Pedraza EBW (kg) Answer Date of Assessment Author 5,564.37 01/26/2025 7:47 AM Nusrat Pedraza EBW (lbs) Answer Date of Assessment Author 5,557.42 01/26/2025 7:47 AM Nusrat Pedraza Weight Change 24 hrs Answer Date of Assessment Author 4.4 01/26/2025 7:47 AM Nusrat Pedraza * BSA (Calculated - sq m) Answer Date of Assessment Author 2.75 01/26/2025 7:47 AM Nusrat Pedraza BMI (Calculated) Answer Date of Assessment Author 52.91 01/26/2025 7:47 AM Nusrat Pedraza * BP Location Answer Date of Assessment Author Left arm 01/26/2025 7:47 AM Nusrat Pedraza IBW/kg (Calculated) Male Answer Date of Assessment Author 68.4 01/26/2025 7:47 AM Nusrat Pedraza IBW/kg (Calculated) Female Answer Date of Assessment Author 63.9 01/26/2025 7:47 AM Nusrat Pedraza IBW/kg (Calculated) Answer Date of Assessment Author 63.9 01/26/2025 7:47 AM Nusrat Pedraza Weight in (lb) to have BMI = 25 Answer Date of Assessment Author 164.1 01/26/2025 7:47 AM Nusrat Pedraza * BMI (Calculated) Answer Date of Assessment Author 53 01/26/2025 7:47 AM Nusrat Pedraza A Bobby Percent Excess Weight Loss Answer Date of Assessment Author 0 01/26/2025 7:47 AM Nusrat Pedraza A * Weight Change Since Preop Answer Date of Assessment Author 157.8 01/26/2025 7:47 AM Nusrat Pedraza A * Initial Excess Weight Answer Date of Assessment Author -63.5 01/26/2025 7:47 AM Nusrat Pedraza A * IBW in kg (Bariatric) Answer Date of Assessment Author 63.5 01/26/2025 7:47 AM Nusrat Pedraza A * IBW in lb (Bariatric) Answer Date of Assessment Author 140 01/26/2025 7:47 AM Nusrat Pedraza A * Weight Change Since Last Visit Answer Date of Assessment Author 157.8 01/26/2025 7:47 AM Nusrat Pedraza A * Percent of IBW Answer Date of Assessment Author 248.49 01/26/2025 7:47 AM Nusrat Pedraza * EBW (kg) Answer Date of Assessment Author 94.26 01/26/2025 7:47 AM Nusrat Pedraza A * EBW (lb) Answer Date of Assessment Author 207.89 01/26/2025 7:47 AM Nusrat Pedraza A * Difference in Weight Since Last Visit Answer Date of Assessment Author 4.4 01/26/2025 7:47 AM Nusrat Pedraza A * IBW/kg (Calculated) Answer Date of Assessment Author 63.9 01/26/2025 7:47 AM Nusrat Pedraza A * Adult Low Range Vt 6mL/kg Answer Date of Assessment Author 383.4 01/26/2025 7:47 AM Nusrat Pedraza A * Adult Moderate Range Vt 8mL/kg Answer Date of Assessment Author 511.2 01/26/2025 7:47 AM Nusrat Pedraza A * Adult High Range Vt 10mL/kg Answer Date of Assessment Author 639 01/26/2025 7:47 AM Nusrat Pedraza A * Pain Score Answer Date of Assessment Author 3 01/26/2025 7:47 AM Nusrat Pedraza A * Patient Position Answer Date of Assessment Author Sitting 01/26/2025 7:47 AM Nusrat Pedraza A * OVER THE LAST WEEK, were you able to: Question Answer Date of Assessment Author Dress yourself, including ty ing shoelaces and doing buttons? 1 01/26/2025 7:00 AM EST Stock, Marce A Get in and out of bed? 1 01/26/2025 7:00 AM EST Stock, Marce A Lift a full cup or glass to your mouth? 0 1 03/29/2024 7:00 AM EST Stock, Marce A Walk outdoors on flat ground? 1 01/26/2025 7:00 AM EST Stock, Marce A Wash and dry your entire body? 0 01/26/2025 7:00 AM EST Stock, Marce A Bend down to pick and shovel man clothin g from the floor? 1 01/26/2025 7:00 AM EST Stock, Marce A Turn regular faucets on and off? 0 01/27/20 7:00 AM EST Stock, Marce A Get in and out of a car, bus , train or airplane? 1 01/26/2025 7:00 AM EST Stock, Marce A Walk two miles or three kilo meters, if you wish? 1 01/26/2025 7:00 AM EST Stock, Marce A Participate in recreational activities and sports as you would like, if you wish? 1 01/26/2025 7:00 AM EST Stock, Marce A Get a good night s sleep? 0 01/26/2025 7:00 AM EST Stock, Marce A Deal with feelings of anxiet y or being nervous? 0 01/26/2025 7:00 AM EST Stock, Marce A Deal with feelings of depres chandan or feeling blue? 0 01/26/2025 7:00 AM EST Stock Marce A * How much pain have you had because of your condition OVER THE PAST WEEK? Question Answer Date of Assessment Author Pain Severity: 5 01/26/2025 7:00 AM EST Hud joshua Marce A * Considering all the ways in which illness and health conditions may affect you at this time, pleaseindicate how you are doing. Question Answer Date of Assessment Author Overall Wellbein 01/26/2025 7:00 AM EST Montrell Marce A * RAPID3 Score Question Answer Date of Assessment Author Score (0-10) 9.3 01/26/2025 7:00 AM EST Fantasma Guerrayla A Interpretation Moderate Severity (MS) 01/26/2025 7:00 AM Marce Pedraza Pain Screening/Additional Assessments Question Answer Date of Assessment Author Pain Screening/Assessments Pain Screening 01/26/2025 7 :47 AM Marce Pedraza * Pain Screening Answer Date of Assessment Author 0-10 01/26/2025 7:47 AM Nusrat Pedraza * BP Answer Date of Assessment Author 116/84 01/26/2025 7:47 AM Nusrat Pedraza * Pulse Answer Date of Assessment Author 76 01/26/2025 7:47 AM Nusrat Pedraza * SpO2 Answer Date of Assessment Author 96 01/26/2025 7:47 AM Nusrat Pedraza * Height Answer Date of Assessment Author 68 01/26/2025 7:47 AM Nusrat Pedraza * Weight Answer Date of Assessment Author 5566.17 01/26/2025 7:47 AM Nusrat Pedraza * BSA (Calculated - sq m) Answer Date of Assessment Author 2.75 01/26/2025 7:47 AM Nusrat Pedraza * BMI (Calculated) Answer Date of Assessment Author 52.91 01/26/2025 7:47 AM Nusrat Pedraza BP Location Answer Date of Assessment Author Left arm 01/26/2025 7:47 AM Nusrat Pedraza * Weight in (lb) to have BMI = 25 Answer Date of Assessment Author 164.1 01/26/2025 7:47 AM Nusrat Pedraza Pain Score Answer Date of Assessment Author 3 01/26/2025 7:47 AM Nusrat Pedraza * Patient Position Answer Date of Assessment Author Sitting 01/26/2025 7:47 AM Nusrat Pedraza documented as of this encounter Mental Status * BP Answer Entry Date Author 116/84 01/26/2025 7:47 AM Nusrat Pedraza * Pulse Answer Entry Date Author 76 01/26/2025 7:47 AM Nusrat Pedraza * SpO2 Answer Entry Date Author 96 01/26/2025 7:47 AM Nusrat Pedraza * Height Answer Entry Date Author 68 01/26/2025 7:47 AM Nusrat Pedraza Weight Answer Entry Date Author 5566.17 01/26/2025 7:47 AM Nusrat Pedraza * BMI (Calculated) Answer Entry Date Author 53 01/26/2025 7:47 AM Nusrat Pedraza Percent Excess Weight Loss Answer Entry Date Author 0 01/26/2025 7:47 AM Nusrat Pedraza Total Weight Change Percent Answer Entry Date Author 2222 01/26/2025 7:47 AM Nusrat Pedraza Weight Change Since Preop Answer Entry Date Author 157.76 01/26/2025 7:47 AM Nusrat Pedraza * Initial Excess Weight Answer Entry Date Author -63.5 01/26/2025 7:47 AM Nusrat Pedraza IBW in lbs (Bariatric) Answer Entry Date Author 140 01/26/2025 7:47 AM Nusrat Pedraza Weight Change Since Last Visit Answer Entry Date Author 157.76 01/26/2025 7:47 AM Nusrat Pedraza IBW in kg (Bariatric) Answer Entry Date Author 63.5 01/26/2025 7:47 AM Nusrat Pedraza Percent of IBW Answer Entry Date Author 8,765.62 01/26/2025 7:47 AM Nusrat Pedraza EBW (kg) Answer Entry Date Author 5,564.37 01/26/2025 7:47 AM Nusrat Pedraza EBW (lbs) Answer Entry Date Author 5,557.42 01/26/2025 7:47 AM Nusrat Pedraza Weight Change 24 hrs Answer Entry Date Author 4.4 01/26/2025 7:47 AM Nusrat Pedraza * BSA (Calculated - sq m) Answer Entry Date Author 2.75 01/26/2025 7:47 AM Nusrat Pedraza BMI (Calculated) Answer Entry Date Author 52.91 01/26/2025 7:47 AM Nusrat Pedraza * BP Location Answer Entry Date Author Left arm 01/26/2025 7:47 AM EST Stock, J teresa A * IBW/kg (Calculated) Male Answer Entry Date Author 68.4 01/26/2025 7:47 AM Nusrat Pedraza * IBW/kg (Calculated) Female Answer Entry Date Author 63.9 01/26/2025 7:47 AM Nusrat Pedraza * IBW/kg (Calculated) Answer Entry Date Author 63.9 01/26/2025 7:47 AM Nusrat Pedraza * Restart Pain Assessment Timer Answer Entry Date Author Yes 01/26/2025 7:47 AM Nusrat Pedraza * Weight in (lb) to have BMI = 25 Answer Entry Date Author 164.1 01/26/2025 7:47 AM Nusrat Pedraza * BMI (Calculated) Answer Entry Date Author 53 01/26/2025 7:47 AM Nusrat Pedraza * Percent Excess Weight Loss Answer Entry Date Author 0 01/26/2025 7:47 AM Nusrat Pedraza Weight Change Since Preop Answer Entry Date Author 157.8 01/26/2025 7:47 AM Nusrat Pedraza * Initial Excess Weight Answer Entry Date Author -63.5 01/26/2025 7:47 AM Nusrat Pedraza IBW in kg (Bariatric) Answer Entry Date Author 63.5 01/26/2025 7:47 AM Nusrat Pedraza * IBW in lb (Bariatric) Answer Entry Date Author 140 01/26/2025 7:47 AM Nusrat Pedraza * Weight Change Since Last Visit Answer Entry Date Author 157.8 01/26/2025 7:47 AM Nusrat Pedraza A * Percent of IBW Answer Entry Date Author 248.49 01/26/2025 7:47 AM Nusrat Pedraza * EBW (kg) Answer Entry Date Author 94.26 01/26/2025 7:47 AM Nusrat Pedraza A * EBW (lb) Answer Entry Date Author 207.89 01/26/2025 7:47 AM Nusrat Pedraza A * Difference in Weight Since Last Visit Answer Entry Date Author 4.4 01/26/2025 7:47 AM Nusrat Pedraza A * IBW/kg (Calculated) Answer Entry Date Author 63.9 01/26/2025 7:47 AM EST Nusrat Stock * Adult Low Range Vt 6mL/kg Answer Entry Date Author 383.4 01/26/2025 7:47 AM EST Nusrat Stock * Adult Moderate Range Vt 8mL/kg Answer Entry Date Author 511.2 01/26/2025 7:47 AM Nusrat Pedraza * Adult High Range Vt 10mL/kg Answer Entry Date Author 639 01/26/2025 7:47 AM EST Nusrat Stock * Pain Score Answer Entry Date Author 3 01/26/2025 7:47 AM Nusrat Pedraza * BP Cuff Size Answer Entry Date Author Large adult 01/26/2025 7:47 AM Nusrat Pedraza * Patient Position Answer Entry Date Author Sitting 01/26/2025 7:47 AM Nusrat Pedraza * Pain Screening Answer Entry Date Author 0-10 01/26/2025 7:47 AM Nusrat Pedraza documented in this encounter Miscellaneous Notes * Progress Notes - Vickie Chisholm DO - 01/26/2025 8:15 AM EST Rheumatology Follow-up Prior patient, transferred to [facility] 01/26/2025 Pt with psoriatic arthritis, psoriasis, osteoarthritis and hx of +KIMBERLY but negative Dec 18, 2016 at [facility]. Had 4 dislocations of L patella in the past. Past medical history significant for obstructive sleep apnea for which patient is on a CPAP. last visit Dog tripped her at [facility] but she's good. Skin is better but has psoriatic patches on her elbows and other places - she doesn't care because the med helps her joints. Uses cream on skin prn. Takes ibuprofon prn - 2-3 times a month. No infections in the interval. INTERIM: First visit with [facility]. Reports for the last 3 months has had significant R knee pain, a lot of swelling here, despite wearing compression socks. She has not had any recent imaging of the R knee. 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 Continues to have psoriasis on her bilateral elbows, is itchy, but tolerable, she is not worried about skin lesions at this time. No nail or scalp psoriasis. No other joint pain or swelling. No dactylitis. If she does have pain it is in the R 3rd PIP. No enthesitis. No IBD or change in bowel symptoms. No uveitis. No fevers, infections. No shortness of breath. Review of system: 14 point ROS was done, negative other than mentioned in HPI. Vitals: 01/26/25 0747 BP: 116/84 Pulse: 76 SpO2: 96% Physical Exam Appearance: Overweight, no acute distress Eyes: No scleral icterus. Extraocular movements intact. Pulmonary: No respiratory distress. Musculoskeletal: No synovitis or tenderness of DIPs, PIPs, MCPs, wrists, elbows, shoulders, knees, ankles, MTPs. Bilateral knee crepitus- worse on the R. Skin: Psoriasis on bilateral elbows Lymphadenopathy: No cervical, submandibular or inguinal adenopathy. Neurological: oriented to person, place, and time. Psychiatric: Mood & behavior normal. Imaging: X-ray hands and feet (2017): CMC narrowing, no erosions, calcaneal enthesopathy, os trigonum. R knee X-ray pending Assessment & Plan Prior patient, transferred to [facility] 01/25/2025 Psoriatic arthritis Dx 2017 with -No uveitis, IBD, enthesitis, dactylitis. She does have occasional swelling of her R 3rd PIP joint-not consistent. -Psoriasis is present on bilateral elbows- pt reports it is not bothering her (is itchy at times), using topicals. -She has been using more frequent Ibuprofen since R knee pain has started- I suspect OA but could also be due to PsA- enthesitis can be more common here if from PsA- consider MRI pending XR findings -She gets labs done at [facility] 11/2024- good (reviewed on her phone) PLAN: -Continue upadacitnib (Rinvoq) 15 mg tablet once daily -Continue triamcinolone ointment prn -X-ray of R knee- low threshold for further imaging if needed Medication history: Methotrexate from 2016 to 2018, sulfasalazine from 2017 to 2018, Enbrel from 2018 to June 2020, Adalimumab/Humira (started & stopped in 2020). Cosentyx [id number]. Rinvoq 2021-current High-risk medication use: Long-term current use of immunosuppressive drugs Monitor closely for infection Discussed vaccinations- pneumonia, shingles- she plans to get at home hospital Hepatitis panel and quant gold negative 2018 Osteoarthritis bilateral knees Crepitations on range of motion of bilateral knees- worse on the R Weight loss BMI greater than 50 Weight loss would definitely help her knees HLD T2DM HTN Risk factors for harder to control PsA Monitored by PCP Hypothyroidism Mood disorder Monitored by PCP Immunization History Administered Date(s) Administered Hep A, Adult 02/09/2018 Moderna COVID-19 Vaccine (Graphic Art Sales Representative) 12+ years 01/29/2021, 02/26/2021 Follow-up: 6 months documented in this encounter Plan of Treatment Upcoming Encounters Date Type Department Care Team (Late st Contact Info) Description 08/25/2025 9:45 AM EDT Office Visit [facility] Medicine Specialties [address] [place] [address] Vickie Chisholm DO [address] [place] [address] Scheduled Orders Name Type Priority Associated Diagnoses Orde r Schedule XR Knee Right 4+ Views Imaging Routine Chronic pain of right knee Psoriatic arthritis of multiple joints (CMS/HCC) [facility] current use of immunosuppressive drug Expected: 01/26/2025 (Approximate), Expires: 07/30/2026 Comprehensive Metabolic Panel, Plasma Lab Routine Psoriatic arthritis of multiple joints (CMS/HCC) 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 Expected: 01/26/2025 (Approximate), Expires: 07/27/2026 CBC and Differential Lab Routine Psoriatic arthritis of multiple joints (CMS/HCC) [facility] current use of immunosuppressive drug Expected: 01/26/2025 (Approximate), Expires: 07/27/2026 C-Reactive Protein, Plasma Lab Routine Psoriatic arthritis of multiple joints (CMS/HCC) 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 Expected: 01/26/2025 (Approximate), Expires: 07/27/2026 Sedimentation Rate, Automated Lab Routine Psoriatic arthritis of multiple joints (CMS/HCC) 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 Expected: 01/26/2025 (Approximate), Expires: 07/27/2026 documented as of this encounter Visit Diagnoses Diagnosis Chronic pain of right knee- Primary Psoriatic arthritis of multiple joints (CMS/HCC) [facility] current use of immunosuppressive drug documented in this encounter Additional Health Concerns Assessment Noted Time A fall risk assessment has been complete d for the patient 01/26/2024 8:21 AM EST A Body Mass Index follow-up plan has been documented for the patient 01/26/2025 8:49 AM EST documented as of this encounter Care Teams Gusset Ripper Relationship Specialty Start Date End Date Ivett Santana PA [address] [place] [address] PCP - General 07/28/23 documented as of this encounter
--- OUTSIDE RECORDS SUMMARY | 2025-02-03 09:58 | XMS_ITS | Encounter Summary ---
Author Organization [facility] Address [address] [place] [address] Care Team Providers Care Control Systems Drafting Officer Name Role Phone Ivett Santana Primary Care Provider [phone] Reason for Referral * Medications - Authorized Specialty Diagnoses / Procedures Referred By Contac t Referred To Contact Diagnoses Psoriatic arthritis (CMS/HCC) Vickie Chisholm DO [address] [place] [address] Phone: tel: fax: Referral ID Status Reason Start Date Expiration Date V isits Requested Visits Authorized [id number] Authorized 08/18/2025 1 1 Encounter Details Date Type Department Care Team (Late st Contact Info) Description 01/26/2025 Refill [facility] [address] [place] [address] Lindsay Grace, PharmD None None Psoriatic arthritis (CMS/HCC) Social History Tobacco Use Types Packs/Day Years [...] PM EST documented as of this encounter Miscellaneous Notes * Addendum Note - Lindsay Grace PharmD - 01/26/2025 8:53 AM ESTAddended by: LINDSAY GRACE on: 01/26/2025 08:53 AM Modules accepted: Orders * Progress Notes - Lindsay Grace PharmD - 01/26/2025 8:53 AM EST Resent prescription(s) to requested pharmacy due to: Prescription(s) sent to wrong pharmacy. Confirmed script(s) is cancelled at original pharmacy. * Progress Notes - Lindsay Grace PharmD - 01/26/2025 8:49 AM EST 1 medication(s) has been approved per protocol. documented in this encounter Plan of Treatment Upcoming Encounters Date Type Department Care Team (Late st Contact Info) Description 08/25/2025 9:45 AM EDT Office Visit [facility] Medicine Specialties [address] [place] [address] Vickie Chisholm DO [address] [place] [address] documented as of this encounter Visit Diagnoses Diagnosis Psoriatic arthritis (CMS/HCC) Psoriatic arthropathy documented in this encounter Additional Health Concerns Assessment Noted Time A fall risk assessment has been complete d for the patient 01/26/2024 8:21 AM EST A Body Mass Index follow-up plan has been documented for the patient 01/26/2025 8:49 AM EST documented as of this encounter Care Teams Control Systems Drafting Officer Relationship Specialty Start Date End Date Ivett Santana PA [address] [place] [address] PCP - General 07/28/23 documented as of this encounter
--- OUTSIDE RECORDS SUMMARY | 2025-02-03 09:58 | XMS_ITS | Encounter Summary ---
Author Organization [facility] Address [address] [place] [address] Care Team Providers Care Transfer Coordinator Name Role Phone Ivett Santana Primary Care Provider [phone] Reason for Visit * Reason Onset Date Comments Med Refill 01/24/2025 Encounter Details Date Type Department Care Team (Late st Contact Info) Description 01/24/2025 Refill [facility] Medicine Specialties [address] [place] [address] Yesika Christian Psoriatic arthritis (CMS/HCC) Social History Tobacco Use [...] PM EST documented as of this encounter Plan of Treatment Upcoming Encounters Date Type Department Care Team (Late st Contact Info) Description 08/25/2025 9:45 AM EDT Office Visit [place] [facility] [address] [place] [address] Vickie Chisholm DO [address] [place] [address] documented as of this encounter Visit Diagnoses Diagnosis Psoriatic arthritis (CMS/HCC) Psoriatic arthropathy documented in this encounter Additional Health Concerns Assessment Noted Time A fall risk assessment has been complete d for the patient 01/26/2024 8:21 AM EST A Body Mass Index follow-up plan has been documented for the patient 01/26/2024 8:59 AM EST documented as of this encounter Care Teams Transfer Coordinator Relationship Specialty Start Date End Date Ivett Santana PA [address] [place] [address] PCP - General 07/28/23 documented as of this encounter
--- OUTSIDE RECORDS SUMMARY | 2025-02-03 09:58 | XMS_ITS | Clinical Summary ---
Author Organization Healthcare Address [address] [place] [address] Care Team Providers Care Casualty Claim Adjuster Name Role Phone Ivett Santana Primary Care Provider [phone] Allergies Active Allergy Reactions Criticality Noted Date [...] (one) time each day with breakfast. Active Ozempic, 0.25 or 0.5 MG/DOSE, 2 MG/3ML solution pen-injector 4 Active triamcinolone (Kenalog) 0.1 % ointment Apply topically 2 (two) times a day. 80 g 6 4 Active Upadacitinib ER (Rinvoq) 15 MG tablet sustained-relea se 24 hourIndications :Psoriatic arthritis (CMS/HCC) Take 1 tablet by mouth daily. 30 tablet 6 5 Active Upadacitinib ER (Rinvoq) 15 MG tablet sustained-relea se 24 hourIndications :Psoriatic arthritis (CMS/HCC) TAKE 1 TABLET BY MOUTH 1 TIME EACH DAY. 30 tablet 11 4 01/27/20 25 Discontinu ed(Reorder ) Upadacitinib ER (Rinvoq) 15 MG tablet sustained-relea se 24 hourIndications :Psoriatic arthritis (CMS/HCC) Take 1 tablet by mouth daily. 30 tablet 6 5 01/27/20 25 Discontinu ed(Reorder ) Active Problems Problem Noted Date Diagnosed Date Morbid obesity with body mass index (BMI) of 40. 0 or higher 04/10/2022 Psoriatic arthritis 02/20/2017 Psoriasis 12/18/2016 Encounters Date Type Department Care Team Description 01/26/2025 8:15 AM EST Office Visit [facility] [address] [place] [address] Vickie Chisholm DO Chronic pain of right knee (Primary Dx); Psoriatic arthritis of multiple joints (CMS/HCC); [facility] current use of immunosuppressive drug 01/26/[address] [facility] [address] [place] [id number] Lindsay Mortensen, PharmD Psoriatic arthritis (CMS/HCC) 01/26/2025 Travel 01/24/[address] [facility] [address] [place] [phone] Yesika Christian Psoriatic arthritis (CMS/HCC) from Last 3 Months Immunizations Immunization Administration Dates Next Due Hep [...] Pulse 76 01/26/2025 7:47 AM EST Temperature 36.9 C (98.4 F) 01/26/2024 8:18 AM EST Respiratory Rate 16 01/26/2024 8:18 AM EST Oxygen Saturation 96% 01/26/2025 7:47 AM EST Inhaled Oxygen Concentration - - Weight 158 kg (347 lb 14.2 oz) 01/26/2025 7:47 A M EST Height 172.7 cm (5' 8 ) 01/26/2025 7:47 AM EST Body Mass Index 52.9 01/26/2025 7:47 AM EST Plan of Treatment Upcoming Encounters Date Type Department Care Team (Late st Contact Info) Description 08/25/2025 9:45 AM EDT Office Visit [facility] [address] [place] [address] Vickie Chisholm DO [address] [place] [address] Health Maintenance Due Date Last Done Comments [facility]-HIV Screening 1974 [facility]-/Child/Adol SDOH Screenings 1974 [facility]- SDOH Screenings 1992 [facility]-Adult SDOH Screenings 1992 [facility]-DTaP,Tdap,and Td Vaccines (1 - Tdap) 1993 [facility]-Hepatitis B Vaccines (1 of 3 - 19+ 3-dose series) 1993 [facility]-Pap Smear 1995 [facility]-Cervical Cancer Screening 2004 [facility]-HPV/Cotest 2004 CT Colonography 2019 Colonoscopy 2019 FIT-DNA 2019 FIT 2019 FOBT 2019 Sigmoidoscopy 2019 [facility]-Colorectal Cancer Screening 2019 [id number]-05 Vaccine (3 - Moderna risk series) 03/26/2021 02/26/2021, 01/29/2021 [facility]-Breast Cancer Screening 2024 [facility]-Pneumococcal Vaccine: 50+ Years (1 of 1 - PCV) 2024 [facility]-Zoster Vaccines (1 of 2) 2024 [facility]-Depression Screening 01/25/2025 01/26/2024 [facility]-Hepatitis A Vaccines Aged Out 02/09/2018 No longer eligible based on patient's age to complete this topic [facility]-Hepatitis C Screening Completed 04/01/2018 [facility]-Influenza Vaccine Completed 12/15/2024 [facility]-Obesity Intervention Completed 025, 01/26/2024, 07/28/2023, Additional history exists HPV Vaccines (No Doses Required) Completed [facility]-HIB Vaccines Aged Out No longer e [...] PM EST 04/01/2018 7:00 PM EST Bridgett Put[employer] BLOOD ORDERABLES Fi nal Result SUNQUEST from Last 3 Months or Most Recently Relevant to Health Maintenance Insurance [facility] Care Teams Casualty Claim Adjuster Relationship Specialty Start Date End Date Ivett Santana PA [address] [place] [address] PCP - General 07/28/23
--- OUTSIDE RECORDS SUMMARY | 2025-02-03 09:58 | XMS_ITS | Encounter Summary ---
Author Organization Healthcare Address [address] [place] [address] Care Team Providers Care Pbx Repairer Name Role Phone Rohan Saravia STEVEN Primary Care Provider [phone] Ivett Santana Primary Care Provider [phone] Reason for Visit * Reason Comments Med Refill Encounter Details Date Type Department Care Team (Late st Contact Info) Description 11/22/2020 Refill [facility] [address] [place] [address] Yesika Christian Social History Tobacco Use Types Packs/Day Years [...] Description 08/25/2025 9:45 AM EDT Office Visit [facility] [address] [place] [address] Vickie Chisholm, DO [address] [place] [address] documented as of this encounter Visit Diagnoses Not on filedocumented in this encounter Additional Health Concerns Assessment Noted Time A fall risk assessment has been complete d for the patient 10/23/2020 3:14 PM EDT documented as of this encounter Care Teams Pbx Repairer Relationship Specialty Start Date End Date Rohan Saravia APRN [address] [place] [id number] PCP - General 06/22/20 07/27/23 Ivett Santana PA [address] [place], [place] [id number] PCP - General 07/28/23 documented as of this encounter
--- OUTSIDE RECORDS SUMMARY | 2025-02-03 09:58 | XMS_ITS | Encounter Summary ---
Author Organization Healthcare Address [address] [place] [address] Care Team Providers Care Buyer Intern Name Role Phone Ivett Santana Primary Care Provider [phone] Encounter Details Date Type Department Care Team (Latest Contact Info) Description 01/26/2025 Travel Social History Tobacco Use Types Packs/Day Years [...] PM EST documented as of this encounter Functional Status * Communicable Disease Screening Question Answer Date of Assessment Author Have you been in contact wit h someone who was sick? No / Unsure 01/26/2025 7:35 AM Valerie Quiles Do you have any of the follo wing new or worsening symptoms? None of these 01/26/2025 7:35 AM Valerie Quiles * Travel Screening Question Answer Date of Assessment Author Have you traveled [place] or domestically in the last month? No 01/26/2025 7:35 AM Valerie Ambrose documented as of this encounter Mental Status * Communicable Disease Screening Question Answer Entry Date Author Have you been in contact wit h someone who was sick? No / Unsure 01/26/2025 7:35 AM Valerie Quiles Do you have any of the follo wing new or worsening symptoms? None of these 01/26/2025 7:35 AM Valerie Quiles * Travel Screening Question Answer Entry Date Author Have you traveled [place] or domestically in the last month? No 01/26/2025 7:35 AM Valerie Ambrose documented in this encounter Plan of Treatment Upcoming Encounters Date Type Department Care Team (Late st Contact Info) Description 08/25/2025 9:45 AM EDT Office Visit [facility] [address] [place] [address] Vickie Chisholm, DO [address] [place] [address] documented as of this encounter Visit Diagnoses Not on filedocumented in this encounter Additional Health Concerns Assessment Noted Time A fall risk assessment has been complete d for the patient 01/26/2024 8:21 AM EST A Body Mass Index follow-up plan has been documented for the patient 01/26/2025 8:49 AM EST documented as of this encounter Care Teams Buyer Intern Relationship Specialty Start Date End Date Ivett Santana PA [address] [place] [address] PCP - General 07/28/23 documented as of this encounter
--- NOTE | 2025-02-03 10:10 | XR_ITS ---
FINAL REPORT CLINICAL HISTORY: CHRONIC PAIN RT KNEE FINDINGS: RIGHT KNEE Four views were obtained. There is no fracture or dislocation. There is severe joint space narrowing of the medial compartment. There are moderate degenerative changes at the patellofemoral joint. No joint effusion is identified. No soft tissue abnormality is identified. IMPRESSION: Degenerative changes as above. Reviewed, Interpreted and Dictated by Odalis Ibarra MD Transcribed by Mamta Farias Authenticated and [facility]
[2025-02-03 10:29] LABS: Hematocrit 38.2 % (37.0-47.0); Hemoglobin 12.3 g/dL (12.2-16.2); Immature Granulocytes % 1.1 %; Mean Corpuscular HGB Conc 32.2 g/dL (31.8-35.4); Mean Corpuscular Hemoglobin 30.1 pg (27.0-31.2); Mean Corpuscular Volume 93.4 fl (81-99); Nucleated Red Blood Cells % 0 %; Platelet Count 247 K/mm3 (142-424); Red Blood Count 4.09 M/mm3 (4.20-5.40); Red Cell Distribution Width-SD 48.5 fL; White Blood Count 9.2 K/mm3 (4.8-10.8)
[2025-02-03 10:51] LABS: Chloride 108 mmol/L (98-107)
[2025-02-03 10:52] LABS: Albumin Level 4.3 g/dl (3.5-5.0); Potassium 4.2 mmoL/L (3.5-5.1); Sodium 143 mmol/L (136-145)
[2025-02-03 10:54] LABS: Alanine Aminotransferase 73 U/L (12-78); Anion Gap 15.2 mEq/L (5-15); Aspartate Amino Transferase 51 U/L (14-36); Blood Urea Nitrogen 16 mg/dl (7-17); Carbon Dioxide 24 mmol/L (22.0-30.0); Creatinine,Serum 0.70 mg/dl (0.52-1.04); Estimated Glomerular Filt Rate 89 ml/min (>60); GFR (African American) 107 ML/MIN (>60)
[2025-02-03 10:55] LABS: Albumin/Globulin Ratio 1.4 (1.1-1.8); Alkaline Phosphatase 54 U/L (38-126); Bilirubin,Total 0.5 mg/dl (0.2-1.3); Calcium 9.9 mg/dl (8.4-10.2); Globulin 3.0 g/dL (1.3-3.2); Glucose 119 mg/dl (74-100); Total Protein,Serum 7.3 g/dl (6.3-8.2)
[2025-02-03 11:18] LABS: C-Reactive Protein 2.0 mg/L (0-4)
== END 2025-02-03 23:59 | disposition home or self-care (01) ==
LOC: LAB 09:56
PROVIDERS: PCP Family Medicine; Visit Provider Student in an Organized Health Care Education/Training Program
DX: M17.11 Unilateral primary osteoarthritis, right knee (principal); G89.29 Other chronic pain; L40.50 Arthropathic psoriasis, unspecified; Z79.60 Long term (current) use of unspecified immunomodulators and immunosuppressants
CPT/HCPCS: 36415; 73564; 80053; 85025; 85651; 86140